=== PATIENT | female | born 1950 | race Caucasian/White ===

== ENCOUNTER 2019-06-29 05:50 | Outpatient (CLI) | payer MEDICARE, OTHER ==
[~2019-06-29] VITALS: Ht 170.2 cm; Wt 100.0 kg
[2019-06-29] MEDS ORDERED: DOCU100T7 PO (10:52)
[2019-06-29] MEDS ORDERED: PANT40TA3 PO (10:52)
[2019-06-29] MEDS ORDERED: MV-M1TAB38 PO (10:52)
[2019-06-29] MEDS ORDERED: METF-397 PO (10:52)
[2019-06-29] MEDS ORDERED: MV-M1TAB57 PO (10:52)
[2019-06-29] MEDS ORDERED: MTP25TSR PO (10:52)
[2019-06-29] MEDS ORDERED: LISI-552 PO (10:52)
== END 2019-06-29 10:57 | disposition home or self-care (01) ==
LOC: PREOP 05:50
PROVIDERS: ATTEND Specialist
DX: Z01.818 Encounter for other preprocedural examination (principal)

== ENCOUNTER 2019-07-01 06:32 | Day surgery (SDC) | payer MEDICARE, OTHER ==
[~2019-07-01] VITALS: Ht 170.2 cm; Wt 100.0 kg
[~2019-07-01 06:32] MED LIST: DOCU100T7 PO; LISI-552 PO; METF-397 PO; MTP25TSR PO; MV-M1TAB38 PO; MV-M1TAB57 PO; PANT40TA3 PO
[2019-07-01 06:40] VITALS: BP 110/94
[2019-07-01] MEDS ORDERED: LIDOCAINE PF 1% 2 ML VIAL IR PRN (06:45)
[2019-07-01] MEDS ORDERED: POVIDONE (BETADINE) OPHTH SOLN 5% 30 ML OP ONE (06:45)
[2019-07-01] MEDS ORDERED: MOXIFLOXACIN OPHTH SOLN 5 MG/ML 0.3 ML SYRINGE OP ONE (06:45)
[2019-07-01] MEDS ORDERED: TIMOLOL MALEATE 0.5% 5 ML (TIMOPTIC) BTL OU PRN (06:45)
[2019-07-01] MEDS: TETRACAINE 0.5% OPHTH SOLN 4 ML BTL (SINGLE DOSE ONLY) OU PRN ×4 (06:50→07:37)
[2019-07-01] MEDS: CYCLOPENTOLATE 1% (CYCLOGYL) 2 ML DROPS OP SCH ×3 (07:08→07:37)
[2019-07-01] MEDS: PHENYLEPHRINE 10% OPHTH (NEO-SYN) 5 ML BTL OU SCH ×3 (07:08→07:38)
[2019-07-01] MEDS ORDERED: MIDAZOLAM 2 MG/2 ML (VERSED) VIAL ONE (07:09)
[2019-07-01] MEDS ORDERED: FAMOTIDINE 20MG/2ML IV (PEPCID) ONE (07:29)
[2019-07-01] MEDS ORDERED: FAMOTIDINE 20MG/2ML IV (PEPCID) IV ONE (07:30)
--- NOTE | 2019-07-01 07:56 | Ophthalmologist Pre-Op Note ---
Pre-Operative Progress Note H&P Reviewed The H&P was reviewed, patient examined and no changes noted. Date H&P Reviewed: Jul 01, 2019 Time H&P Reviewed: 07:56 Pre-Op Dx Cataract, Left Eye PEPE BOUDREAUX MD Jul 01, 2019 07:56
[2019-07-01] MEDS ORDERED: acetaZOLAMIDE ER 500 MG CAP (DIAMOX SEQUELS) PO ONE (08:00)
--- NOTE | 2019-07-01 08:28 | Ophthalmology Operative Report ---
Cataract removal/placement IOL PREOPERATIVE DIAGNOSIS: Cataract Left Eye POSTOPERATIVE DIAGNOSIS: Cataract Left Eye PROCEDURE: Cataract removal and placement of posterior chamber implant, left eye SURGEON: Kamar Boudreaux ANESTHESIA: Topical with sedation COMPLICATIONS: None ESTIMATED BLOOD LOSS: Minimal DESCRIPTION OF PROCEDURE: After proper informed consent was obtained, the patient, a 68 female, was taken to the Operating Room and the left eye was anesthetized with tetracaine. The left eye was then prepped and draped in the usual manner. A wire lid speculum was placed. A paracentesis was made at the left hand position. Preservative free lidocaine was injected into the anterior chamber followed by viscoelastic. A clear corneal incision was made in the temporal position. A capsulorrhexis was preformed and the central nuclear and cortical material were removed. The posterior capsule was polished and an Jesse 17.5 [id number] was placed into the capsular bag. The residual viscoelastic was aspirated and balanced saline solution was injected into the anterior chamber. Moxifloxacin was injected into the anterior chamber. The wound was checked and found to be water tight. The patient tolerated the procedure well without complications. KAMAR BOUDREAUX MD Jul 01, 2019 08:25
[2019-07-01 08:31] VITALS: BP 111/58
--- OUTSIDE RECORDS SUMMARY | 2019-07-05 04:03 | XMS REPORT | Continuity of Care Document ---
Author Organization Unknown Address Unknown Phone Unavailable Allergies Active Description Code Type Severity Reaction Onset Reported/Identified Relationship to Patient Clinical Status Yes No Known Drug Allergies [id number] Drug Allergy Unknown N/A 06/29/2019 Medications There is no data. Problems Date Dx Coded Attending Type Code Diagnosis Diagnosed By 06/29/2019 PEPE BOUDREAUX MD Ot Z01.818 ENCOUNTER FOR OTHER PREPROCEDURAL EXAMIN 06/30/2019 PEPE BOUDREAUX MD Ot Z01.818 ENCOUNTER FOR OTHER PREPROCEDURAL EXAMIN Procedures There is no data. Results Test Result Range Capillary blood glucose measurement by g lucometer (mass/volume) - 07/01/19 07:12 Capillary blood glucose measurement by glucometer (mas s/volume) 115 mg/dL 70-110 Encounters ACCT No. Visit Date/Time Discharge Status Pt. Type Provider Facility Loc./Unit Complaint [id number] 07/01/2019 06:32:00 020 08:31:00 DIS Outpatient PEPE BOUDREAUX MD Via [facility] CATARACT LEFT EYE [id number] 06/29/2019 05:50:00 020 10:57:00 DIS Outpatient PEPE BOUDREAUX MD Via [facility] PREOP CATARACT LEFT EYE [id number] 07/15/2019 08:30:00 P EN Preadmit PEPE BOUDREAUX MD Via [facility] CATARACT RIGHT EYE
== END 2019-07-01 08:31 | disposition home or self-care (01) ==
LOC: SDC 06:32
PROVIDERS: ATTEND Specialist
DX: H25.12 Age-related nuclear cataract, left eye (principal); I10 Essential (primary) hypertension; K21.9 Gastro-esophageal reflux disease without esophagitis; Z87.891 Personal history of nicotine dependence; Z79.899 Other long term (current) drug therapy; Z96.653 Presence of artificial knee joint, bilateral
CPT/HCPCS: 82962

== ENCOUNTER 2019-09-12 09:42 | Outpatient (RCR) | payer MEDICARE, OTHER ==
[~2019-09-12] VITALS: Ht 170.2 cm; Wt 100.0 kg
== END 2019-09-12 15:08 | disposition home or self-care (01) ==
LOC: PREOP 09:42
PROVIDERS: ATTEND Specialist
DX: Z01.818 Encounter for other preprocedural examination (principal); Z11.59 Encounter for screening for other viral diseases
CPT/HCPCS: 87635

== ENCOUNTER 2019-09-16 06:35 | Day surgery (SDC) | payer MEDICARE, OTHER ==
[~2019-09-16] VITALS: Ht 170.2 cm; Wt 100.0 kg
[2019-09-16 06:44] VITALS: BP 152/87
[2019-09-16] MEDS ORDERED: TIMOLOL MALEATE 0.5% 5 ML (TIMOPTIC) BTL OU PRN (06:45)
[2019-09-16] MEDS ORDERED: MOXIFLOXACIN OPHTH SOLN 5 MG/ML 0.3 ML SYRINGE OP ONE (06:45)
[2019-09-16] MEDS ORDERED: POVIDONE (BETADINE) OPHTH SOLN 5% 30 ML OP ONE (06:45)
[2019-09-16] MEDS ORDERED: LIDOCAINE PF 1% 2 ML VIAL IR PRN (06:45)
[2019-09-16] MEDS: TETRACAINE 0.5% OPHTH SOLN 4 ML BTL (SINGLE DOSE ONLY) OU PRN ×4 (06:49→07:08)
[2019-09-16] MEDS: PHENYLEPHRINE 10% OPHTH (NEO-SYN) 5 ML BTL OU SCH ×3 (06:56→07:08)
[2019-09-16] MEDS: CYCLOPENTOLATE 1% (CYCLOGYL) 2 ML DROPS OP SCH ×3 (06:56→07:08)
[2019-09-16] MEDS ORDERED: MIDAZOLAM 2 MG/2 ML (VERSED) VIAL ONE (07:48)
--- NOTE | 2019-09-16 07:49 | Ophthalmologist Pre-Op Note ---
Pre-Operative Progress Note H&P Reviewed The H&P was reviewed, patient examined and no changes noted. Date H&P Reviewed: September 16, 2019 Time H&P Reviewed: 07:49 Pre-Op Dx Cataract, Right Eye PEPE BOUDREAUX MD September 16, 2019 07:49
[2019-09-16] MEDS ORDERED: acetaZOLAMIDE ER 500 MG CAP (DIAMOX SEQUELS) PO ONE (08:00)
--- NOTE | 2019-09-16 08:17 | Ophthalmology Operative Report ---
Cataract removal/placement IOL PREOPERATIVE DIAGNOSIS: Cataract Right Eye POSTOPERATIVE DIAGNOSIS: Cataract Right Eye PROCEDURE: Cataract removal and placement of posterior chamber implant, right eye SURGEON: Kamar Boudreaux ANESTHESIA: Topical with sedation COMPLICATIONS: None ESTIMATED BLOOD LOSS: Minimal DESCRIPTION OF PROCEDURE: After proper informed consent was obtained, the patient, a 68 female, was taken to the Operating Room and the right eye was anesthetized with tetracaine. The right eye was then prepped and draped in the usual manner. A wire lid speculum was placed. A paracentesis was made at the left hand position. Preservative free lidocaine was injected into the anterior chamber followed by viscoelastic. A clear corneal incision was made in the temporal position. A capsulorrhexis was preformed and the central nuclear and cortical material were removed. The posterior capsule was polished and Jesse 16.5 AU00T0 IOL was placed into the capsular bag. The residual viscoelastic was aspirated and balanced saline solution was injected into the anterior chamber. Moxifloxacin was injected into the anterior chamber. The wound was checked and found to be water tight. The patient tolerated the procedure well without complications. KAMAR BOUDREAUX MD September 16, 2019 08:17
[2019-09-16 08:23] VITALS: BP_SYST 140; BP_SYST 152; BP_DIAS 87; BP_DIAS 90
--- OUTSIDE RECORDS SUMMARY | 2019-09-16 08:31 | XMS REPORT ---
Author Author Sandra LIANG [facility] Address [address] [place] [address] Care Team Providers Care Instructor Extension Work Name Role Phone JACKELINE LIANG Unavailable PROBLEMS Type Condition ICD9-CM Code POW21-BC Code Onset Dates Condition S tatus SNOMED Code Problem Type 2 diabetes mellitus wit h chronic kidney disease, without long-term current use of insulin, unspecified CKD stage E11.22 Active 59942830 Problem Essential hypertension I10 Active 20076328 Problem Controlled type 2 diabetes m ellitus without complication, without long- term current use of insulin E11.9 Feb, Active 465111289 Problem Symptomatic menopausal or female climacteric states N95.1 Active 04167980 Problem Microalbuminuria R80.9 August, Active 194728237 Problem Morbid obesity with BMI of 40.0-44.9, adult E66 .01 Jun, Active [id number] ALLERGIES No Information ENCOUNTERS Encounter Location Date Diagnosis [address] [id number] [place] [address] Mar, [facility] [place] [id number], [place] [address] Nov, [facility] [place] [id number], [place] [address] Nov, [address] [id number] [place] [address] Nov, Type 2 diabetes mellitus wit h chronic kidney disease, without long-term current use of insulin, unspecified CKD stage E11.22 [facility] [place] [id number] [address] Nov, Essential hypertension I10 and Type 2 diabetes mellitus without complication, without long-term current use of insulin E11.[address] [id number] [place] [address] Oct, Essential hypertension I10 [facility] [id number] [place] [address] August, Type 2 diabetes mellitus wit h chronic kidney disease, without long-term current use of insulin, unspecified CKD stage E11.22 and Breast cancer screening by mammogram Z12.31 [facility] [address] [id number] [place] [address] Jul, [facility] [address] [id number] [place] [address] Jul, [facility] [address] [id number] [place] [address] Jun, [facility] [place] [address] [facility] [id number] [address] [place] [phone] May, Breast cancer screening by michael loya Z12.31 [facility] [address] [id number] [place] [address] May, Type 2 diabetes mellitus wit hout complication, without long-term current use of insulin E11.9 [facility] [place] [address] [facility] [id number] [address] [place] [address] May, [facility] THOMAS [address] [id number] [place] [address] Apr, [facility] [place] [address] [facility] [id number] [address] [place] [address] Apr, [facility] [place] [address] [facility] [id number] [address] [place] [address] Apr, [facility] [address] [facility] [id number] [address] Apr, Type 2 diabetes mellitus without complication, without long-term current use of insulin E11.9 and Essential hypertension I10 [facility] [place] [address] [facility] [id number] [address] [place] [phone] Mar, [facility] [place] [address] [facility] [id number] [address] [place] [address] Mar, [facility] [place] [address] [facility] [id number] [address] [place] [address] Mar, IMMUNIZATIONS No Known Immunizations SOCIAL HISTORY Never Assessed REASON FOR VISIT med refills PLAN OF CARE VITAL SIGNS MEDICATIONS Unknown Medications RESULTS No Results PROCEDURES No Known procedures INSTRUCTIONS MEDICATIONS ADMINISTERED No Known Medications MEDICAL (GENERAL) HISTORY Type Description Date Medical History Morbid obesity with BMI of 40.0-44.9, ad ult Medical History Microalbuminuria Medical History Controlled type 2 diabetes m ellitus without complication, without long-term current use of insulin Medical History Symptomatic menopausal or female climact tyrell states Medical History Essential hypertension Surgical History tonsillectomy and adenoidectomy Surgical History left knee replacement 2007 Surgical History cholecystectomy Surgical History EGD [id number] Surgical History colonoscopy 11/23/2013 Surgical History shoulder surgery, right 01/22/2011 Surgical History dilate esophagus 11/23/2013 Surgical History knee surgery, right 02/20/2015 Surgical History gastric sleeve 07/2018
--- OUTSIDE RECORDS SUMMARY | 2019-09-16 08:31 | XMS REPORT | Continuity of Care Document ---
Author Organization Unknown Address Unknown Phone Unavailable Allergies Active Description Code Type Severity Reaction Onset Reported/Identified Relationship to Patient Clinical Status Yes No Known Drug Allergies [id number] Drug Allergy Unknown N/A 06/29/2019 Medications There is no data. Problems Date Dx Coded Attending Type Code Diagnosis Diagnosed By 03/26/1507 PEPE BOUDREAUX MD Ot Z01.818 ENCOUNTER FOR OTHER PREPROCEDURAL EXAMIN 03/26/1507 PEPE BOUDREAUX MD Ot Z11.59 ENCOUNTER FOR SCREENING FOR OTHER VIRAL 06/29/2019 PEPE BOUDREAUX MD Ot Z01.818 ENCOUNTER FOR OTHER PREPROCEDURAL EXAMIN 06/30/2019 PEPE BOUDREAUX MD Ot Z01.818 ENCOUNTER FOR OTHER PREPROCEDURAL EXAMIN 07/01/2019 PEPE BOUDREAUX MD Ot H25.12 AGE-RELATED NUCLEAR CATARACT, LEFT EYE 07/01/2019 PEPE BOUDREAUX MD Ot I10 ESSENTIAL (PRIMARY) HYPERTENSION 07/01/2019 PEPE BOUDREAUX MD Ot K21 .9 GASTRO-ESOPHAGEAL REFLUX DISEASE WITHOUT 07/01/2019 PEPE BOUDREAUX MD Ot Z79.899 OTHER NURSING INFORMATION SYSTEMS COORDINATOR (CURRENT) DRUG THERAPY 07/01/2019 PEPE BOUDREAUX MD Ot Z87.891 PERSONAL HISTORY OF NICOTINE DEPENDENCE 07/01/2019 PEPE BOUDREAUX MD Ot Z96.653 PRESENCE OF ARTIFICIAL KNEE JOINT, BILAT 07/05/2019 PEPE BOUDREAUX MD Ot H25.12 AGE-RELATED NUCLEAR CATARACT, LEFT EYE 07/05/2019 PEPE BOUDREAUX MD Ot I10 ESSENTIAL (PRIMARY) HYPERTENSION 07/05/2019 PEPE BOUDREAUX MD Ot K21 .9 GASTRO-ESOPHAGEAL REFLUX DISEASE WITHOUT 07/05/2019 PEPE BOUDREAUX MD Ot Z79.899 OTHER RESIDENTIAL (CURRENT) DRUG THERAPY 07/05/2019 PEPE BOUDREAUX MD Ot Z87.891 PERSONAL HISTORY OF NICOTINE DEPENDENCE 07/05/2019 PEPE BOUDREAUX MD Ot Z96.653 PRESENCE OF ARTIFICIAL KNEE JOINT, BILAT 09/12/2019 PEPE BOUDREAUX MD Ot Z01.818 ENCOUNTER FOR OTHER PREPROCEDURAL EXAMIN 09/12/2019 PEPE BOUDREAUX MD Ot Z11.59 ENCOUNTER FOR SCREENING FOR OTHER VIRAL Procedures There is no data. Results Test Result Range Capillary blood glucose measurement by g lucometer (mass/volume) - 07/01/19 07:12 Capillary blood glucose measurement by glucometer (mas s/volume) 115 mg/dL 70-110 Coronavirus SARS-CoV-2 SO 2019 - 0 13:25 Coronavirus Ab [Units/volume] in Serum Negative Negative Encounters ACCT No. Visit Date/Time Discharge Status Pt. Type Provider Facility Loc./Unit Complaint [id number] 12/10/2018 14:20:00 12/10/2018 23:59: 59 CLS Outpatient AZUL, JACKELINE GRIMALDO REJI [id number] 09/12/2019 09:42:00 020 15:08:00 DIS Outpatient PEPE BOUDREAUX MD Via [facility] PREOP CATARACT RT. EYE [id number] 07/15/2019 08:30:00 020 23:59:59 CLS Preadmit PEPE BOUDREAUX MD Via [facility] CATARACT RIGHT EYE [id number] 07/01/2019 06:32:00 020 08:31:00 DIS Outpatient PEPE BOUDREAUX MD Via [facility] CATARACT LEFT EYE [id number] 06/29/2019 05:50:00 020 10:57:00 DIS Outpatient PEPE BOUDREAUX MD Via [facility] PREOP CATARACT LEFT EYE [id number] 09/16/2019 06:35:[address] Outpatient PEPE BOUDREAUX MD Via [facility] CATARACT RIGHT EYE
--- NOTE | 2019-09-16 11:19 | Anesthesia-General Post-Op ---
MAC Patient Condition Mental Status/LOC: Same as Preop Cardiovascular: Satisfactory Nausea/Vomiting: Absent Respiratory: Satisfactory Pain: Controlled Complications: Absent Post Op Complications Complications None Follow Up Care/Instructions Patient Instructions None needed. Anesthesiology Discharge Order Discharge Order Patient is doing well, no complaints, stable vital signs, no apparent adverse anesthesia problems. No complications reported per nursing. SHERITA MEEKS CRNA September 16, 2019 11:19
== END 2019-09-16 08:23 | disposition home or self-care (01) ==
LOC: SDC 06:35
PROVIDERS: ATTEND Specialist
DX: H25.11 Age-related nuclear cataract, right eye (principal); I10 Essential (primary) hypertension; K21.9 Gastro-esophageal reflux disease without esophagitis; Z87.891 Personal history of nicotine dependence; Z79.899 Other long term (current) drug therapy; Z96.651 Presence of right artificial knee joint; Z96.652 Presence of left artificial knee joint; Z98.84 Bariatric surgery status; Z83.518 Family history of other specified eye disorder; Z83.3 Family history of diabetes mellitus

== ENCOUNTER 2021-01-07 05:37 | Outpatient (CLI) | payer MEDICARE, OTHER ==
[~2021-01-07] VITALS: Ht 170.2 cm; Wt 109.1 kg
[~2021-01-07 05:37] MED LIST changes: -LISI-552 PO; +LISI20TA26 PO; -PANT40TA3 PO; +PANT40TA52 PO
== END 2021-01-07 14:58 | disposition home or self-care (01) ==
LOC: PREOP 05:37
PROVIDERS: ATTEND Specialist
DX: Z01.818 Encounter for other preprocedural examination (principal)

== ENCOUNTER 2021-01-11 08:57 | Day surgery (SDC) | payer MEDICARE, OTHER ==
[~2021-01-11] VITALS: Ht 170.2 cm; Wt 109.1 kg
[2021-01-11] MEDS ORDERED: TROPICAMIDE 1% OPH SOLN (MYDRIACYL) 15 ML BTL OU PRN (09:15)
[2021-01-11] MEDS ORDERED: PHENYLEPHRINE 10% OPHTH (NEO-SYN) 5 ML BTL OU PRN (09:15)
[2021-01-11] MEDS: TETRACAINE 0.5% OPHTH SOLN 4 ML BTL (SINGLE DOSE ONLY) OU PRN ×3 (09:20→09:26)
[2021-01-11 09:28] VITALS: BP 124/77
--- NOTE | 2021-01-11 09:41 | Ophthalmologist Pre-Op Note ---
Pre-Operative Progress Note H&P Reviewed The H&P was reviewed, patient examined and no changes noted. Date H&P Reviewed: Jan 11, 2021 Time H&P Reviewed: 09:41 Pre-Op Dx Secondary Cataract, Bilateral Eyes PEPE BOUDREAUX MD Jan 11, 2021 09:41
--- NOTE | 2021-01-11 10:05 | Ophthalmology Operative Report ---
YAG Capsulotomy PREOPERATIVE DIAGNOSIS: Secondary Cataract Bilateral POSTOPERATIVE DIAGNOSIS: Secondary Cataract Bilateral PROCEDURE: YAG Capsulotomy, Bilateral SURGEON: Kamar Boudreaux ANESTHESIA: Topical anesthesia COMPLICATIONS: None ESTIMATED BLOOD LOSS: Minimal DESCRIPTION OF PROCEDURE: After proper informed consent was obtained, the patient's, a 70 female , received one drop of Tropicamide and one drop of Tetracaine in each eye. The patient was then placed at the YAG laser and using a power of [3.5 ] millijoules and bursts [15 ] right eye and [16 ] left eye were used to fashion a central capsulotomy. The patient tolerated the procedure well without complications. KAMAR BOUDREAUX MD Jan 11, 2021 10:05
== END 2021-01-11 09:55 ==
LOC: SDC 08:57
PROVIDERS: ATTEND Specialist
DX: H26.493 Other secondary cataract, bilateral (principal); Z79.899 Other long term (current) drug therapy; Z87.891 Personal history of nicotine dependence; Z83.3 Family history of diabetes mellitus

== ENCOUNTER → 2021-02-25 | Outpatient (CLI) | payer MEDICARE, OTHER ==
--- NOTE | 2021-02-25 13:20 | Diagnostic Imaging Report ---
INDICATION: Left leg pain. Left leg venous Doppler study was performed in the routine fashion with color flow Doppler and waveform analysis. FINDINGS: The left common femoral vein, superficial femoral vein, popliteal vein and visualized portion of the posterior tibial vein show normal compressibility and venous flow patterns. There is normal augmentation. IMPRESSION: No evidence of deep vein thrombosis of the major veins of the left leg. Dictated by: Dictated on workstation # [id number]
== END ==
LOC: RAD 11:51
PROVIDERS: ATTEND Nurse Practitioner Family
DX: M79.662 Pain in left lower leg (principal); M79.89 Other specified soft tissue disorders